=== PATIENT | female | born 1945 | race Caucasian/White ===

== ENCOUNTER 2018-02-02 18:39 | Emergency (ER) | payer MEDICARE, OTHER ==
[~2018-02-02] VITALS: Ht 157.5 cm; Wt 59.9 kg
[~2018-02-02 18:39] MED LIST: ALENDRONATE SOD70 M1 PO; LEVOTHYROXIN0.075 MG PO; LOSARTAN POTASS50 MG PO; METOPROLOL50 MG PO; OYSTER CALCIUM500 M1 PO; [UNRECOGNIZED DRUG - OTHER] PO
[2018-02-02 18:53] VITALS: Ht 157.5 cm; Wt 59.9 kg
[2018-02-02 20:00] VITALS: BP 148/81
== END 2018-02-02 20:10 | disposition home or self-care (01) ==
LOC: ED 18:39
DX: S93.401A Sprain of unspecified ligament of right ankle, initial encounter (principal); I10 Essential (primary) hypertension; E05.90 Thyrotoxicosis, unspecified without thyrotoxic crisis or storm; X50.1XXA Overexertion from prolonged static or awkward postures, initial encounter; Y93.89 Activity, other specified; Y92.89 Other specified places as the place of occurrence of the external cause; Y99.8 Other external cause status